=== PATIENT | female | born 1930 | race Caucasian/White ===

== ENCOUNTER 2017-02-11 08:01 | Inpatient (IN) | payer OTHER ==
[~2017-02-11] VITALS: Ht 154.9 cm; Wt 89.0 kg
[~2017-02-11 08:01] MED LIST: ACTIGALL300 MG PO; ALLEGRA180 MG PO; AMLODIPINE BESYL5 M1 PO; ASPIR 8181 MG PO; AUGMENTIN1 TA2 PO; BACTRIM DS1 TAB PO; BETIMOL5 M1; COLACE100 MG PO; COZAAR100 MG PO; COZAAR50 MG PO; FAMOTIDINE20 MG PO; LAC PO; LOMOTIL1 TAB PO; MAG PO; MELOXICAM7.5 M1 PO; MIRALAX17 GM/Dose PO; NEXIUM40 MG PO; NOR5 PO; NORCO1 TA1 PO; ONDANSETRON4 M3 PO; PYRIDIUM100 MG PO; SIMVASTATIN20 M1 PO; Sodium Chloride PO; TRAMADOL HYDROC; XARELTO10 M1 PO
[2017-02-11] MEDS ORDERED: ALLEGRA ALLERG180 M1 PO (08:54)
[2017-02-11 08:55] LABS: PLATELET COUNT 268 x10^3mcL (130-400)
[2017-02-11 09:00] LABS: CALCIUM 9.2 mg/dL (8.5-10.1); CARBON DIOXIDE 25.9 mmol/L (21-32); CHLORIDE SERUM 93 mmol/L (98-107); CREATININE SERUM 0.9 mg/dL (0.6-1.0); GLUCOSE SERUM 135 mg/dL (74-106); POTASSIUM SERUM 4.4 mmol/L (3.5-5.1); SODIUM SERUM 126 mmol/L (136-145)
[2017-02-11 09:04] LABS: ALBUMIN 3.5 g/dL (3.4-5.0); ALKALINE PHOSPHATASE 128 U/L (46-116); ALT/SGPT 208 U/L (14-59); AST/SGOT 254 U/L (15-37); BILIRUBIN TOTAL 1.37 mg/dL (0.20-1.00); LIPASE 424 IU/L (73-393); MAGNESIUM 1.7 mg/dL (1.8-2.4); TOTAL PROTEIN, SERUM 6.8 g/dL (6.4-8.2)
[2017-02-11 09:35] LABS: RED CELL DISTRIBUTION WIDTH 14.7 % (11.5-14.5)
[2017-02-11 10:27] LABS: BAND NEUTROPHIL 9 % (0-10); BASOPHIL 0 % (0-2); MONOCYTE 1 % (0-7); SEGMENTED NEUTROPHILS 88 % (37-75)
[2017-02-11] MEDS ORDERED: BETIMOL5 M1 OU (12:08)
[2017-02-11 13:15] VITALS: BP 114/57
[2017-02-11 13:28] LABS: PHOSPHOROUS 3.5 mg/dL (2.5-4.9)
[2017-02-11 13:30] LABS: CHOLESTEROL/HDL RATIO 2.5
[2017-02-11 13:39] LABS: FREE T4 1.38 ng/dL (0.76-1.46); FREE THYROXINE INDEX 3.5 ug/dL (1.4-4.5); T4(THYROXINE) 9.3 ug/dL (4.7-13.3)
[2017-02-11 13:40] LABS: T3 TOTAL 0.94 ng/mL
[2017-02-11 17:56] VITALS: BP 142/45
[2017-02-11 21:21] VITALS: BP 109/45
[2017-02-11 21:31] LABS: UA SPECIFIC GRAVITY 1.015 (1.005-1.035); microscopic required? YES; urine erythrocyte TRACE (NEGATIVE)
[2017-02-11 21:41] LABS: AMPHETAMINE QUAL UR NONE DETECTED (NEG <=1000)
[2017-02-11 21:45] VITALS: BP 72/35
[2017-02-11 23:13] VITALS: BP 74/38
[2017-02-11 23:45] VITALS: BP 59/47
[2017-02-12] VITALS (9 sets, daily range): BP systolic 66–125; BP diastolic 33–72
[2017-02-12 05:36] LABS: PLATELET COUNT 144 x10^3mcL (130-400)
[2017-02-12 05:45] LABS: CALCIUM 7.3 mg/dL (8.5-10.1); CARBON DIOXIDE 16.8 mmol/L (21-32); CHLORIDE SERUM 103 mmol/L (98-107); CREATININE SERUM 1.8 mg/dL (0.6-1.0); GLUCOSE SERUM 62 mg/dL (74-106); POTASSIUM SERUM 3.9 mmol/L (3.5-5.1); SODIUM SERUM 133 mmol/L (136-145)
[2017-02-12 05:50] LABS: RED CELL DISTRIBUTION WIDTH 14.7 % (11.5-14.5)
[2017-02-12 06:08] LABS: SEGMENTED NEUTROPHILS 59 % (37-75)
[2017-02-12 06:09] LABS: BAND NEUTROPHIL 17 % (0-10); METAMYELOCTE 18 % (0-2); MYELOCYTE 2 % (0-2)
[2017-02-12 06:11] LABS: PLATELET MORPHOLOGY FEW LARGE PLATELETS; rbc morphology (normal/abnorm) NORMAL (NORMAL)
[2017-02-12 09:42] LABS: BILIRUBIN DIRECT 4.39 mg/dL (0.0-0.2); BILIRUBIN TOTAL 4.5 mg/dL (0.20-1.00)
[2017-02-12 09:44] LABS: ALBUMIN 2.5 g/dL (3.4-5.0); TOTAL PROTEIN, SERUM 4.7 g/dL (6.4-8.2)
[2017-02-13] VITALS (7 sets, daily range): BP systolic 73–124; BP diastolic 34–79; Ht 154.9 cm; Wt 89.0 kg
[2017-02-13 05:50] LABS: PLATELET COUNT 51 x10^3mcL (130-400); RED CELL DISTRIBUTION WIDTH 15.4 % (11.5-14.5)
[2017-02-13 05:56] LABS: CALCIUM 6.3 mg/dL (8.5-10.1); CARBON DIOXIDE 16.2 mmol/L (21-32); CHLORIDE SERUM 100 mmol/L (98-107); CREATININE SERUM 2.5 mg/dL (0.6-1.0); GLUCOSE SERUM 203 mg/dL (74-106); MAGNESIUM 1.4 mg/dL (1.8-2.4); PHOSPHOROUS 4.1 mg/dL (2.5-4.9); POTASSIUM SERUM 3.5 mmol/L (3.5-5.1); SODIUM SERUM 134 mmol/L (136-145)
[2017-02-13 06:14] LABS: BAND NEUTROPHIL 13 % (0-10); METAMYELOCTE 30 % (0-2); MONOCYTE 2 % (0-7); MYELOCYTE 2 % (0-2); SEGMENTED NEUTROPHILS 52 % (37-75)
[2017-02-13 06:17] LABS: rbc morphology (normal/abnorm) ABNORMAL (NORMAL)
[2017-02-13 20:36] LABS: CALCIUM 6.1 mg/dL (8.5-10.1); CARBON DIOXIDE 19.4 mmol/L (21-32); CHLORIDE SERUM 101 mmol/L (98-107); POTASSIUM SERUM 4.3 mmol/L (3.5-5.1); SODIUM SERUM 137 mmol/L (136-145)
[2017-02-13 20:54] LABS: GLUCOSE SERUM 202 mg/dL (74-106)
[2017-02-14 03:28] VITALS: BP 118/52
[2017-02-14 05:09] LABS: BASOPHIL % 0.2 % (0-2)
[2017-02-14 05:23] LABS: CALCIUM 6.4 mg/dL (8.5-10.1); CHLORIDE SERUM 101 mmol/L (98-107); CREATININE SERUM 3.4 mg/dL (0.6-1.0); GLUCOSE SERUM 182 mg/dL (74-106); PHOSPHOROUS 6.8 mg/dL (2.5-4.9); POTASSIUM SERUM 4.9 mmol/L (3.5-5.1); SODIUM SERUM 133 mmol/L (136-145)
[2017-02-14 05:27] LABS: RED CELL DISTRIBUTION WIDTH 16.3 % (11.5-14.5)
[2017-02-14 05:29] LABS: PLATELET COUNT 24 x10^3mcL (130-400)
[2017-02-14 08:00] VITALS: BP 121/62
[2017-02-14 09:09] LABS: BILIRUBIN DIRECT 3.59 mg/dL (0.0-0.2); BILIRUBIN TOTAL 3.8 mg/dL (0.20-1.00)
[2017-02-14 09:17] LABS: ALBUMIN 1.7 g/dL (3.4-5.0); TOTAL PROTEIN, SERUM 4.8 g/dL (6.4-8.2)
[2017-02-14 11:15] VITALS: BP 103/73
== END 2017-02-14 16:47 | disposition expired | DRG 871 ==
LOC: ED 08:01 → DU 11:08 → IC 11:08 → DU 12:40 → IC 02-12 02:17
PROVIDERS: Emergency Medicine; Internal Medicine Gastroenterology; ADMIT Family Medicine
PROC: B543ZZA Ultrasonography of Right Jugular Veins, Guidance (ICD-10-PCS; 2017-02-12)
PROC: 0F798DZ Dilation of Common Bile Duct with Intraluminal Device, Via Natural or Artificial Opening Endoscopic (ICD-10-PCS; principal; 2017-02-12 09:00)
PROC: 0FC98ZZ Extirpation of Matter from Common Bile Duct, Via Natural or Artificial Opening Endoscopic (ICD-10-PCS; 2017-02-12 09:00)
PROC: 05HM33Z Insertion of Infusion Device into Right Internal Jugular Vein, Percutaneous Approach (ICD-10-PCS; 2017-02-12 09:00)
DX: A41.89 Other specified sepsis (principal); K85.90 Acute pancreatitis without necrosis or infection, unspecified; R65.21 Severe sepsis with septic shock; J96.00 Acute respiratory failure, unspecified whether with hypoxia or hypercapnia; N17.0 Acute kidney failure with tubular necrosis; J69.0 Pneumonitis due to inhalation of food and vomit; E87.1 Hypo-osmolality and hyponatremia; D68.69 Other thrombophilia; E87.4 Mixed disorder of acid-base balance; I42.9 Cardiomyopathy, unspecified; B96.1 Klebsiella pneumoniae [K. pneumoniae] as the cause of diseases classified elsewhere; K80.50 Calculus of bile duct without cholangitis or cholecystitis without obstruction; E11.65 Type 2 diabetes mellitus with hyperglycemia; E83.42 Hypomagnesemia; K21.9 Gastro-esophageal reflux disease without esophagitis; M19.90 Unspecified osteoarthritis, unspecified site; D64.9 Anemia, unspecified; E78.5 Hyperlipidemia, unspecified; Z96.643 Presence of artificial hip joint, bilateral; Z95.0 Presence of cardiac pacemaker; Z68.29 Body mass index [BMI] 29.0-29.9, adult
CPT/HCPCS: 36556; 36600; 43260; 82962; 83880; 84439; B4164; C1769; C9113; J0295; J0696; J1642; J1720; J1815; J1940; J1956; J2060; J2250; J2270; J2370; J2405; J2543; J2550; J2704; J2765; J3010; J3370; J3475; J3490; J7030; J7040; J7042; J7050; J7620; J7626; Q0092; Q9967